=== PATIENT | female | born 1995 | race Caucasian/White ===

== ENCOUNTER 2022-12-14 06:05 | Inpatient (IN) | payer OTHER ==
[2022-12-14 07:07] LABS: BASO % 0.5 % (0-2.0); EOS % 2.6 % (0-4.5); HEMATOCRIT 33.6 % (32.4-45.2); HEMOGLOBIN 11.6 GM/dL (10.7-15.3); LYMPH % 20.9 % (8-40); MCH 30.1 pg (25.7-33.7); MCHC 34.5 g/dl (32.0-36.0); MEAN CELL VOLUME 87.4 fl (80-96); MEAN PLT VOLUME 9.4 fl (7.5-11.1); MONO % 5.7 % (3.8-10.2); NEUT % 70.3 % (42.8-82.8); PLATELET COUNT 198 10^3/uL (134-434); RBC 3.84 M/mm3 (3.60-5.2); RDW 22.5 % (11.6-15.6); WHITE BLOOD COUNT 4.5 K/mm3 (4.0-10.0)
[2022-12-14 07:21] LABS: INR 0.98 (0.83-1.09); PROTHROMBIN TIME (PATIENT) 11.4 SEC (9.7-13.0)
[2022-12-14 07:28] LABS: CALCIUM 8.2 mg/dL (8.5-10.1)
[2022-12-14 07:29] LABS: BLOOD UREA NITROGEN 4.5 mg/dL (7-18)
[2022-12-14 07:32] LABS: CREATININE 0.6 mg/dL (0.55-1.3)
[2022-12-14 08:10] VITALS: BMI 21.9
[2022-12-14] MEDS ORDERED: CITRIC ACID/SODIUM CITRATE 30 ML UNIT-DOSE CUP PO ONE (08:35)
[2022-12-14 08:37] LABS: ANISOCYTOSIS 2+; MACROCYTOSIS 1+
[2022-12-14] MEDS: DEXTROSE 5%-LACTATED RINGERS 1,000 ML IV SCH (09:30)
[2022-12-14] MEDS ORDERED: ONDANSETRON 4 MG/2 ML VIAL IVPUSH PRN (17:16)
[2022-12-14] MEDS ORDERED: ACETAMINOPHEN 325 MG TABLET (FP) PO PRN (17:16)
[2022-12-14] MEDS ORDERED: morphine SULFATE/PF 1 MG/2 ML (2cc Syringe - QUVA) EP ONE (17:16)
[2022-12-14] MEDS: KCL 10 MEQ IVPB 10 MEQ/100 ML INFUS.BAG IVPB SCH ×2 (18:03→21:50)
[2022-12-14] MEDS ORDERED: morphine SULFATE/PF 1 MG/2 ML (2cc Syringe - QUVA) ONE (18:26)
[2022-12-14] MEDS ORDERED: SODIUM CHLORIDE 0.9% P/F 10 ML VIAL IJ ONE (18:27)
[2022-12-14] MEDS ORDERED: ceFAZolin SODIUM 1 GM VIAL ONE (18:27)
[2022-12-14] MEDS ORDERED: PHENYLEPHRINE HCL 10 MG/1 ML SINGLE DOSE VIAL ONE (18:49)
[2022-12-14] MEDS ORDERED: OXYTOCIN 10 UNITS/ML VIAL ONE ×2 (19:13→20:09)
[2022-12-14] MEDS ORDERED: KETOROLAC TROMETHAMINE 30 MG/1 ML VIAL ONE (20:09)
[2022-12-14] MEDS ORDERED: ONDANSETRON 4 MG/2 ML VIAL ONE (20:09)
[2022-12-14 20:37] LABS: CORD BASE EXCESS -1.1 mmol/L (0-2); CORD HCO3 26.1 mmHg (20-29); CORD PCO2 53.9 mmHg (30-78); CORD pH 7.303 (7.14-7.44)
[2022-12-14 20:40] LABS: CORD HCO3 24.9 mmHg (20-29); CORD PCO2 46.1 mmHg (30-78); CORD pH 7.351 (7.14-7.44)
[2022-12-15 06:55] LABS: BASO % 0.5 % (0-2.0); EOS % 1.3 % (0-4.5); HEMATOCRIT 31.6 % (32.4-45.2); HEMOGLOBIN 11.2 GM/dL (10.7-15.3); LYMPH % 13.1 % (8-40); MCH 31.1 pg (25.7-33.7); MCHC 35.4 g/dl (32.0-36.0); MEAN CELL VOLUME 87.9 fl (80-96); MEAN PLT VOLUME 8.8 fl (7.5-11.1); MONO % 4.9 % (3.8-10.2); NEUT % 80.2 % (42.8-82.8); PLATELET COUNT 174 10^3/uL (134-434); RDW 21.7 % (11.6-15.6); WHITE BLOOD COUNT 6.2 K/mm3 (4.0-10.0)
[2022-12-15] MEDS: OXYTOCIN 20 UNITS in 0.9% NS 20 UNIT/1,000 ML INFUS.BAG IV SCH ×3 (08:54→22:48)
[2022-12-15] MEDS: DEXTROSE 5%-LACTATED RINGERS 1,000 ML IV SCH (08:55)
[2022-12-15] MEDS: SIMETHICONE 80 MG TAB.CHEW (FP) PO PRN (19:18)
[2022-12-15] MEDS: oxyCODONE HCL 5 MG TABLET PO PRN (19:18)
[2022-12-15] MEDS: IBUPROFEN 600 MG TABLET (FP) PO PRN (20:55)
[2022-12-16] MEDS: oxyCODONE HCL 5 MG TABLET PO PRN (08:11)
[2022-12-16] MEDS: SIMETHICONE 80 MG TAB.CHEW (FP) PO PRN ×2 (11:02→21:36)
[2022-12-16] MEDS: IBUPROFEN 600 MG TABLET (FP) PO PRN ×2 (11:02→21:37)
[2022-12-17] MEDS: SIMETHICONE 80 MG TAB.CHEW (FP) PO PRN (06:10)
[2022-12-17] MEDS: IBUPROFEN 600 MG TABLET (FP) PO PRN ×2 (06:10→13:15)
[2022-12-17 07:41] LABS: BASO % 0.2 % (0-2.0); EOS % 3.1 % (0-4.5); LYMPH % 21.7 % (8-40); MCH 30.5 pg (25.7-33.7); MCHC 34.5 g/dl (32.0-36.0); MEAN CELL VOLUME 88.3 fl (80-96); MEAN PLT VOLUME 9.2 fl (7.5-11.1); PLATELET COUNT 214 10^3/uL (134-434); RBC 3.63 M/mm3 (3.60-5.2); RDW 21.9 % (11.6-15.6); WHITE BLOOD COUNT 5.1 K/mm3 (4.0-10.0)
[2022-12-17 12:28] VITALS: BP 114/68; PULSE 72; RESP 17; TEMP 98.2
== END 2022-12-17 14:05 | disposition home or self-care (01) | DRG 540 ==
LOC: JLDR 06:05 → J3W 13:22
PROVIDERS: ADMIT Obstetrics & Gynecology Maternal & Fetal Medicine; ATTEND Obstetrics & Gynecology Maternal & Fetal Medicine
PROC: 10D00Z1 Extraction of Products of Conception, Low, Open Approach (ICD-10-PCS; principal; 2022-12-14)
DX: O36.5930 Maternal care for other known or suspected poor fetal growth, third trimester, not applicable or unspecified (principal); O34.219 Maternal care for unspecified type scar from previous cesarean delivery; O99.284 Endocrine, nutritional and metabolic diseases complicating childbirth; E05.90 Thyrotoxicosis, unspecified without thyrotoxic crisis or storm; Z3A.38 38 weeks gestation of pregnancy; Z37.0 Single live birth
CPT/HCPCS: 36415; 36600; 80048; 82803; 85025; 85461; 85610; 85730; 86780; 86850; 86900; 86901; 86999; 87340; 88307-TC; C9803-CS; U0003; U0005